=== PATIENT | male | born 1975 | race Caucasian/White ===

== ENCOUNTER 2019-03-22 18:25 | Emergency (ER) | payer OTHER ==
[~2019-03-22] VITALS: Ht 182.9 cm; Wt 115.9 kg
--- NOTE | 2019-03-22 18:40 | NUR ---
MARIPOSA Mcgill made aware of patient's status at this time.
--- NOTE | 2019-03-22 18:42 | NUR ---
Dr Iyer made aware of Patient's status. MD to assess patient.
[2019-03-22 19:10] LABS: BASOPHILS # (AUTO) 0.1 X10'3 (0-0.2); BASOPHILS % (AUTO) 0.7 % (0-1); EOSINOPHILS # (AUTO) 0.2 X10'3 (0-0.9); EOSINOPHILS % (AUTO) 2.1 % (0-6); HEMOGLOBIN 15.9 g/dl (14.0-17.9); LYMPHOCYTES # (AUTO) 3.1 X10'3 (1.1-4.8); MEAN CORPUSCULAR HGB CONC 33.7 g/dL (33.0-36.5); MONOCYTES # (AUTO) 0.9 X10'3 (0-0.9); NEUTROPHILS # (AUTO) 3.8 X10'3 (1.8-7.7); NEUTROPHILS % (AUTO) 47.2 % (42-75); PLATELET COUNT 199 X10'3 (140-440); RED BLOOD COUNT 5.28 X10'6 (4.70-6.10); RED CELL DISTRIBUTION WIDTH 13.7 % (11.5-14.5)
[2019-03-22 19:10] LABS: CLARITY,URINE CLEAR (Clear); COLOR,URINE YELLOW (Yellow); GLUCOSE, URINE NEGATIVE (Neg); KETONES,URINE NEGATIVE (Neg); LEUKOCYTE ESTERASE ,URINE NEGATIVE (Neg); NITRITES, URINE NEGATIVE (Neg); OCCULT BLOOD,URINE NEGATIVE (Neg); PH,URINE 6.5 (4.8-8.0); PROTEIN,URINE NEGATIVE (Neg)
[2019-03-22 19:15] LABS: UA COLLECTION TYPE VOIDED
[2019-03-22] MEDS ORDERED: iohexol 300mg/ml 100ml inj. ONE (19:18)
[2019-03-22] MEDS ORDERED: normal saline 1000ML IV soln IVB ONE (19:20)
[2019-03-22] MEDS ORDERED: HYDROmorphone 1 mg/ml syringe IV ONE ×4 (19:20→20:10)
[2019-03-22] MEDS ORDERED: ondansetron/PF 4mg/2ml inj IV ONE ×2 (19:20)
[2019-03-22 19:21] LABS: ALANINE AMINOTRANSFERASE 101 U/L (12-78); ALBUMIN 3.6 G/DL (3.4-5.0); ALBUMIN/GLOBULIN RATIO 0.9 (1.1-1.5); ALKALINE PHOSPHATASE 79 IU/L (46-116); ANION GAP 8 (8-16); ASPARTATE AMINO TRANSFERASE 41 U/L (10-37); BILIRUBIN,TOTAL 0.2 MG/DL (0.1-1.0); BLOOD UREA NITROGEN 23 MG/DL (7-18); BUN/CREATININE RATIO 27.1 (5.4-32.0); CALCIUM 8.8 MG/DL (8.5-10.1); CHLORIDE 106 MMOL/L (99-107); CREATININE 0.85 MG/DL (0.60-1.10); GLUCOSE 118 MG/DL (70-104); POTASSIUM 3.9 MMOL/L (3.5-5.1); SODIUM 140 MMOL/L (135-145); TOTAL CARBON DIOXIDE 25.7 MMOL/L (24-32); TOTAL PROTEIN 7.5 G/DL (6.4-8.2); eGFR > 90 ML/MIN
[2019-03-22] MEDS ORDERED: HYDROcodone/acetaminophen 10/325mg tab PO ONE (20:30)
[2019-03-22] MEDS ORDERED: ONDA4TAB6 PO (20:36)
[2019-03-22] MEDS ORDERED: HYDR-4353 PO (20:36)
[2019-03-22 21:12] VITALS: BP 136/72
== END 2019-03-22 21:14 | disposition home or self-care (01) ==
LOC: ER 18:25
DX: S30.1XXA Contusion of abdominal wall, initial encounter (principal); F17.200 Nicotine dependence, unspecified, uncomplicated; Z88.5 Allergy status to narcotic agent; W22.8XXA Striking against or struck by other objects, initial encounter; Y93.89 Activity, other specified; Y92.89 Other specified places as the place of occurrence of the external cause; Y99.9 Unspecified external cause status
CPT/HCPCS: 36415; 72170; 74177; 80053; 81003; 85025; 85610; 96374; 96375; 96376; 99284; J1170; J2405; J7030; Q9967

== ENCOUNTER 2020-01-13 19:27 | Emergency (ER) | payer OTHER ==
[~2020-01-13] VITALS: Ht 182.9 cm; Wt 115.9 kg
[~2020-01-13 19:27] MED LIST: ONDA4TAB6 PO
[2020-01-13 19:37] VITALS: BP 141/80
== END 2020-01-13 21:09 | disposition left against medical advice (07) ==
LOC: ER 19:28
DX: R07.89 Other chest pain (principal); Z53.21 Procedure and treatment not carried out due to patient leaving prior to being seen by health care provider